=== PATIENT | female | born 1965 | race Caucasian/White ===

== ENCOUNTER → 2016-08-08 | Outpatient (CLI) | payer OTHER ==
[~2016-08-08] MED LIST: ALPR0.25 PO; B12-1CHW CHEW; CALC500T19 PO; FISHCAP PO; ST J81CH PO
--- NOTE | 2016-08-08 12:01 | RADRPT ---
EXAM DATE/TIME: 08/08/2016 10:37 [facility] COMPARISON: No previous studies available for comparison. INDICATIONS : Visual disturbance. Headache. MEDICAL HISTORY : None. SURGICAL HISTORY : Brain. ENCOUNTER: Initial ACUITY: 1 day PAIN SCORE: 0/10 LOCATION: cranial TECHNIQUE: Multiplanar, multisequence MRI of the brain was performed without contrast. FINDINGS: There is suggestion of possible right calvarial surgery. There is a large area of fluid collection hy gromas fluid in the right hemisphere extending from the frontal temporal region posteriorly toward oc cipital and vertex. He be postsurgical with diminished volume of the right cerebellar hemisphere. Mid line structures and major anatomic landmarks are correctly situated with slight asymmetry of the vent ricles right larger than left and there is no evidence of diffusion abnormality or acute stroke or he morrhage. There is a 2.5 cm mucus tension cyst or polyp in right maxillary sinus and mucoperiosteal thickening and/or opacification of right ethmoid ai r cells. CONCLUSION: Apparent prior right cranial surgery with marked reduction in the volume of right cerebellar tissue a large hygromas postoperative fluid collection as described. No acute abnormality. Any prior examinat ions for comparison would be of interest . Right maxillary and ethmoid sinus disease as described above Andrez Shah MD on August 08, 2016 at 11:55 Board Certified Radiologist. This report was verified electronically.
--- NOTE | 2016-08-08 12:43 | RADRPT ---
EXAM DATE/TIME: 08/08/2016 11:08 [facility] COMPARISON: No previous studies available for comparison. INDICATIONS : Pain. MEDICAL HISTORY : Scoliosis. SURGICAL HISTORY : None. ENCOUNTER: Initial ACUITY: 1 week PAIN SCORE: 8/10 LOCATION: Lumbar. FINDINGS: Flexion and extension films reveal no abnormal motion segments. There is minimal loss of vertebral b nilda height at T12 seen best on the flexion films. This is age indeterminate. Mild degenerative flores ge is seen in the facets. CONCLUSION: There is no abnormal motion. Rupesh Rodriguez MD FACR on August 08, 2016 at 12:22 Board Certified Radiologist. This report was verified electronically.
--- NOTE | 2016-08-08 12:45 | RADRPT ---
EXAM DATE/TIME: 08/08/2016 11:08 [facility] COMPARISON: No previous studies available for comparison. INDICATIONS : Pain. MEDICAL HISTORY : Scoliosis. SURGICAL HISTORY : None. ENCOUNTER: Initial ACUITY: 1 week PAIN SCORE: 8/10 LOCATION: Lumbar FINDINGS: There is thoracolumbar scoliosis. There is minimal loss of vertebral body height at L2 and L3 with l oss of disc space height at L2-L3. This is associated with mild degenerative changes present in the facets. Minimal vascular calcification is noted. CONCLUSION: Degenerative changes as described above. Rupesh Rodriguez MD FACR on August 08, 2016 at 12:21 Board Certified Radiologist. This report was verified electronically.
--- NOTE | 2016-08-08 13:19 | RADRPT ---
EXAM DATE/TIME: 08/08/2016 10:37 [facility] COMPARISON: No previous studies available for comparison. INDICATIONS : Visual disturbance. Headache. MEDICAL HISTORY : None. SURGICAL HISTORY : Brain. ENCOUNTER: Initial ACUITY: 1 day PAIN SCORE: 0/10 LOCATION: cranial Please note a normal MRA of the brain does not entirely exclude the possibility of a small aneurysm, nor the possibility of distal intracranial vessel disease. TECHNIQUE: 3D time of flight MRA was performed. Source images, multiplanar STS MIP, and 3D volume MIP reconstru ctions were reviewed. FINDINGS: The vertebral vessels, basilar artery and internal carotid arteries are intact into the brain, howeve r there are severe chronic appearing findings involving the intracerebral circulation. The terminal i nternal carotid arteries are severely tapered. 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 The left MCA is proximally occluded with tenuous reconstitution of sylvian and other corti radha branch vessels. There are prominent presumed spontaneous EC-IC collateral channels bilaterally. T he right posterior cerebral artery arises in fashion and is a small caliber vessel with areas o f severe distal attenuation proximal to the occipital branches. The left posterior cerebral artery P2 and P3 segments are significantly attenuated with multiple small collateral vessels assisting with r econstitution of a normal caliber distal left CHICK SEXER which then extends into the occipital region. The a nterior cerebral vessels are severely attenuated. There is no evidence of aneurysm. 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 Sean Puente MD on August 08, 2016 at 13:05 Board Certified Radiologist. This report was verified electronically.
== END ==
LOC: HRAD 09:47
PROVIDERS: ATTEND Family Medicine
DX: M53.3 Sacrococcygeal disorders, not elsewhere classified (principal)
CPT/HCPCS: 70544; 70551; 72100; 72120